=== PATIENT | male | born 1970 | race American Indian/Alaskan Native ===

== ENCOUNTER 2023-05-10 05:57 | Emergency (ER) | payer OTHER ==
[2023-05-10] MEDS ORDERED: Tetracaine HCl/PF 0.5% 4 ML Bottle EYERT ONE (06:11)
[2023-05-10] MEDS ORDERED: Fluorescein 1 MG Ophth Strip EYERT ONE (06:11)
[2023-05-10] MEDS ORDERED: Proparacaine 0.5% Ophth Soln 15 ML Bottle EYERT ONE (06:19)
[2023-05-10] MEDS ORDERED: Erythromycin Base 0.5% Ophth Oint 3.5 GM Tube EYEBOTH ONE (06:29)
== END 2023-05-10 06:46 | disposition home or self-care (01) ==
LOC: DL.ED 05:57
DX: S05.01XA Injury of conjunctiva and corneal abrasion without foreign body, right eye, initial encounter (principal); W22.8XXA Striking against or struck by other objects, initial encounter
CPT/HCPCS: 99282; 99283; A9270-GY; J3490

== ENCOUNTER 2023-12-03 00:14 | Emergency (ER) | payer OTHER ==
[2023-12-03 00:48] LABS: BASOPHILS PERCENT AUTO 0.1 % (0.0-1.0); EOSINOPHILS PERCENT AUTO 0.9 % (1.0-3.0); HEMATOCRIT 43.3 % (40.0-54.0); HEMOGLOBIN 14.1 g/dL (14.0-18.0); LYMPHOCYTES PERCENT AUTO 13.9 % (20.5-50.1); MEAN CORPUSCULAR HEMOGLOBIN 26.4 pg (27.0-34.0); MEAN CORPUSCULAR HGB CONC 32.6 g/dL (33.0-35.0); MEAN CORPUSCULAR VOLUME 81.1 fL (80-100); MONOCYTES PERCENT AUTO 11.4 % (2-8); NEUTROPHILS PERCENT AUTO 73.7 % (42.2-75.2); PLATELET COUNT,PLT 342 10^3/uL (150-450); RED BLOOD CELL COUNT 5.34 10^6/uL (4.6-6.2); WHITE BLOOD CELL COUNT,WBC 21.1 10^3/uL (5.0-10.0)
[2023-12-03] MEDS ORDERED: Iopamidol 612 MG/ML 100 ML Bottle IVPUSH ONE (00:58)
[2023-12-03] MEDS: Sodium Chloride 0.9% 10 ML Syringe FLUSH PRN (01:04)
[2023-12-03 01:12] LABS: A/G RATIO 0.9; ALBUMIN 3.4 g/dL (3.4-5.0); BILIRUBIN TOTAL 0.4 mg/dL (0.2-1.0); BUN/CREATININE RATIO 15.2 (No establ ref range); C-REACTIVE PROTEIN 7.59 ng/dL (<=0.50); CREATININE 0.99 mg/dL (0.70-1.30); EST CRCL DRUG DOSING (CG) 85.3 mL/min; PROTEIN TOTAL,TP 7.4 g/dL (6.4-8.2)
[2023-12-03] MEDS: Piperacillin/Tazobactam 3.375 GM in Sodium Chloride 0.9% 100 ML IV ONE (01:33)
[2023-12-03 01:42] LABS: ANION GAP 15.6 mEq/L (7-13); POTASSIUM,K 3.6 mmol/L (3.5-5.1)
[2023-12-03] MEDS: Ketorolac 30 MG/ML SDV IVPUSH ONE (03:01)
[2023-12-03] MEDS ORDERED: Naloxone 2 MG/2 ML Syringe IVPUSH PRN (04:05)
[2023-12-03] MEDS: Ondansetron 4 MG in Sodium Chloride 0.9% 50 ML IV ONE (04:11)
[2023-12-03] MEDS: Morphine 4 MG/ML Syringe IVPUSH ONE (04:12)
[2023-12-03] MEDS: Sodium Chloride 0.9% 1,000 ML IV ONE (04:15)
== END 2023-12-03 04:36 ==
LOC: DL.ED 00:14
DX: K35.201 Acute appendicitis with generalized peritonitis, with perforation, without abscess (principal); K80.20 Calculus of gallbladder without cholecystitis without obstruction; F17.210 Nicotine dependence, cigarettes, uncomplicated; Z86.16 Personal history of COVID-19
CPT/HCPCS: 36415; 74177; 80053; 85025; 86140; 87040; 96365; 96375; 99285; J1885; J2270; J2405; J2543; J3490; J7030

== ENCOUNTER 2024-02-27 06:18 | Day surgery (SDC) | payer OTHER ==
[2024-02-27] MEDS ORDERED: Midazolam 1 MG/ML 2 ML SDV ONE (06:19)
[2024-02-27] MEDS ORDERED: fentaNYL 100 MCG/2 ML SDV ONE (06:19)
[2024-02-27] MEDS: Dextrose 5%-0.45% NaCl 1,000 ML IV SCH (06:42)
[2024-02-27] MEDS: fentaNYL 100 MCG/2 ML SDV IV ONE ×2 (08:00→08:01)
[2024-02-27] MEDS: Midazolam 1 MG/ML 2 ML SDV IV ONE ×2 (08:01→08:02)
== END 2024-02-27 09:40 | disposition home or self-care (01) ==
LOC: DL.ENDO 06:18
PROVIDERS: ATTEND Internal Medicine Gastroenterology
DX: K44.9 Diaphragmatic hernia without obstruction or gangrene (principal)
CPT/HCPCS: 43239; 87077; J2250; J3010; J7799